=== PATIENT | male | born 1990 | race Caucasian/White ===

== ENCOUNTER 2017-05-29 22:37 | Emergency (ER) | payer MEDICAID ==
[~2017-05-29] VITALS: Ht 182.9 cm; Wt 77.1 kg
[2017-05-29 22:57] VITALS: BP 149/84
--- NOTE | 2017-05-29 23:05 | NUR ---
TO LOBBY AMBULATORY, IN STABLE CONDITION, EKG DONE, A/W FOR BED, ERMD NOTED
--- NOTE | 2017-05-30 02:26 | NUR ---
PT AMBUALTED TO ER OF 4
--- NOTE | 2017-05-30 02:30 | NUR ---
PATIENT IS A 27 Y/O MALE WHO PRESENTS TO THE ED C/O CHEST PAIN. PT STATES, "I HAVE BEEN HAVING THIS CHEST PAIN FOR ABOUT 2 WEEKS." PT REPORTS 8/10 ACHING CHEST PAIN THAT DOES NOT RADIATE. PT DENIES SOB, N/V/D. PT AAOX4, RR EVEN/UNLABORED. PT REPOSITIONED FOR COMFORT, BED IN LOWEST POSITION. ER MD DR. MENESES NOTIFIED. WILL CONTINUE TO MONITOR.
--- NOTE | 2017-05-30 03:30 | NUR ---
PATIENT RESTING AT THIS TIME.
[2017-05-30 04:26] VITALS: BP 140/80
--- NOTE | 2017-05-30 04:26 | NUR ---
Patient discharged with v/s stable. Written and verbal after care instructions given and explained. Patient alert, oriented and verbalized understanding of instructions. Ambulatory with steady gait. All questions addressed prior to discharge. ID band removed. Patient advised to follow up with PMD. Rx of IBUPROFEN 800MG given. Patient educated on indication of medication including possible reaction and side effects. Opportunity to ask questions provided and answered.
== END 2017-05-30 04:26 | disposition home or self-care (01) ==
LOC: MED 22:37
DX: M94.0 Chondrocostal junction syndrome [Tietze] (principal)
CPT/HCPCS: 71010; 93005; 99284

== ENCOUNTER 2018-02-12 09:54 | Emergency (ER) | payer OTHER ==
[~2018-02-12] VITALS: Ht 180.3 cm; Wt 78.0 kg
[2018-02-12 10:09] VITALS: BP 127/71
--- NOTE | 2018-02-12 10:25 | NUR ---
PATIENT PRESENTS TO ED WITH COMPLAINTS OF EAR ACHE, HEADACHE, AND NAUSEA X 2 WEEKS. PATIENT ALSO REPORTS HE FELT HIS FACE GO NUMB YESTERDAY. PATIENT DENIES DIARRHEA, VOMITING. SKIN IS PINK/WARM/DRY; AAOX4 WITH EVEN AND STEADY GAIT; LUNGS CLEAR BL; HR EVEN AND REGULAR; PT DENIES ANY FEVER, CP, SOB, OR COUGH AT THIS TIME; PATIENT STATES PAIN OF 7/10 AT THIS TIME; VSS; PATIENT POSITIONED FOR COMFORT; HOB ELEVATED; BEDRAILS UP X1; BED DOWN. ER MD MADE AWARE OF PT STATUS.
[2018-02-12 12:04] VITALS: BP 127/71
--- NOTE | 2018-02-12 12:08 | NUR ---
Patient discharged with v/s stable. Written and verbal after care instructions given and explained. Patient alert, oriented and verbalized understanding of instructions. Ambulatory with steady gait. All questions addressed prior to discharge. ID band removed. Patient advised to follow up with PMD. Rx of MECLIZINE AND CLARITIN D given. Patient educated on indication of medication including possible reaction and side effects. Opportunity to ask questions provided and answered.
== END 2018-02-12 12:08 | disposition home or self-care (01) ==
LOC: MED 09:54
DX: J32.0 Chronic maxillary sinusitis (principal); R42 Dizziness and giddiness
CPT/HCPCS: 82948; 99282

== ENCOUNTER 2018-05-07 13:39 | Emergency (ER) | payer OTHER ==
[~2018-05-07] VITALS: Ht 172.7 cm; Wt 80.9 kg
[2018-05-07 13:48] VITALS: BP 130/67
--- NOTE | 2018-05-07 14:00 | NUR ---
PT AMBULATES TO BED 1
--- NOTE | 2018-05-07 14:02 | NUR ---
28 YO M BIB FAMILY AFTER FALLING THROUGH THE CEILING WHILE WORKING IN THE [employer]. PT REPORTS PAIN RIGHT ARM AND LEFT LEG, AND LOWER BACK. PT PRESENTS W/ LACERATION TO THE LEFT KNEE. BLEEDING CONTROLLED. CMS INTACT. AMBULATORY W/ STEADY GAIT. DENIES HITTING HEAD/LOC, DENIES N/V. 8/10 SHARP PAIN IN L KNEE AND R ARM AND LOWER BACK. L KNEE LACERATION NOTED TO L KNEE, BLEEDING CONTROLLED. FAMILY MEMBER AT BEDSIDE. ER MD MADE AWARE. SAFETY PRECAUTIONS IMPLEMENTED. WILL CONTINUE TO MONITOR.
--- NOTE | 2018-05-07 15:02 | NUR ---
Patient being evaluated by physician at bedside.
--- NOTE | 2018-05-07 15:14 | NUR ---
Note keagan in EDM - 05/07/18 at 1515 by [email or web address] Patient discharged with v/s stable. Written and verbal after care instructions given and explained to parent/guardian. Parent/Guardian verbalized understanding of instructions. Ambulatory with by parent. All questions addressed prior to discharge. ID band removed. Parent/Guardian advised to follow up with PMD. Rx of PROMETHAZINE HYDROCHLORIDE given. Parent/Guardian educated on indication of medication including possible reaction and side effects. Opportunity to ask questions provided and answered.
[2018-05-07] MEDS ORDERED: traMADol 50 MG TAB PO ONE (15:30)
[2018-05-07] MEDS ORDERED: IBUPROFEN 800 MG TAB PO ONE (15:30)
--- NOTE | 2018-05-07 15:35 | NUR ---
PT. TAKEN TO CT SCAN AT THIS TIME
--- NOTE | 2018-05-07 15:54 | NUR ---
PT RETURNED FROM CT
--- NOTE | 2018-05-07 16:30 | NUR ---
PT. RESTING COMFORTABLY IN BED, RR EVEN AND UNLABORED. WILL CONTINUE TO MONITOR. AT BEDSIDE AT THIS TIME.
--- NOTE | 2018-05-07 17:39 | NUR ---
PT. RESTING COMFORTABLY IN BED, RR EVEN AND UNLABORED. WILL CONTINUE TO MONITOR.
[2018-05-07 18:15] VITALS: BP 134/68
--- NOTE | 2018-05-07 18:15 | NUR ---
Patient discharged with v/s stable. Written and verbal after care instructions given and explained. Patient alert, oriented and verbalized understanding of instructions. Ambulatory with steady gait. All questions addressed prior to discharge. ID band removed. Patient advised to follow up with PMD. Rx of MOTRIN 800MG, TRAMADOL 50MG given. Patient educated on indication of medication including possible reaction and side effects. Opportunity to ask questions provided and answered.
== END 2018-05-07 18:15 | disposition home or self-care (01) ==
LOC: MED 13:39
DX: S80.02XA Contusion of left knee, initial encounter (principal); S30.0XXA Contusion of lower back and pelvis, initial encounter; S40.811A Abrasion of right upper arm, initial encounter; S80.212A Abrasion, left knee, initial encounter; W17.89XA Other fall from one level to another, initial encounter; Y93.89 Activity, other specified; Y92.89 Other specified places as the place of occurrence of the external cause; Y99.8 Other external cause status
CPT/HCPCS: 71250; 72125; 72131; 90471; 90715; 99284

== ENCOUNTER 2019-08-20 21:14 | Emergency (ER) | payer OTHER ==
[~2019-08-20] VITALS: Ht 180.3 cm; Wt 79.4 kg
[2019-08-20 21:26] VITALS: BP 133/92
--- NOTE | 2019-08-20 21:30 | NUR ---
EKG PERFORMED AT BEDSIDE
--- NOTE | 2019-08-20 21:34 | NUR ---
29 Y/O MALE PRESENTS WITH CHEST PAIN ASSOCIATED WITH BREATHING BEGINNING THIS MORNING. PAIN IS LEFT SIDED CHEST PAIN, SHARP, 7/1 RADIATING TO LEFT ARM. DENIES ANY PROVOKING EVENTS. PT STATES PAIN OCCURS WHEN TAKING BREATHS. DENIES ANY SOB. RESP EVEN AND UNLABORED. LUNG SOUNDS CLEAR IN BILAT LOBES. CAP REFILL <3. AAOX4. CAP REFILL <3. SKIN COOL/DRY. NSR, VSS NO PMH NKA
[2019-08-20] MEDS ORDERED: KETOROLAC 30 MG/ML VIAL IM ONE (22:05)
--- NOTE | 2019-08-20 22:10 | NUR ---
PT IS LAYING IN BED. NSR. VSS. RESP EVEN AND UNLABORED. EYES OPENING SPONTANEOUSLY
[2019-08-20 22:46] VITALS: BP 133/92
== END 2019-08-20 22:46 | disposition home or self-care (01) ==
LOC: MED 21:14
DX: R07.9 Chest pain, unspecified (principal); R00.2 Palpitations
CPT/HCPCS: 71045; 93005; 96372; 99284; J1885; Q0092

== ENCOUNTER 2019-09-14 12:32 | Emergency (ER) | payer OTHER ==
[~2019-09-14] VITALS: Ht 180.3 cm; Wt 79.4 kg
--- NOTE | 2019-09-14 12:36 | NUR ---
Ambulated to bed 11
[2019-09-14 12:39] VITALS: BP 134/78
--- NOTE | 2019-09-14 12:48 | NUR ---
XRAY IS AT BEDSIDE.
--- NOTE | 2019-09-14 12:48 | NUR ---
C/O RIGHT DISTAL TIB/FIB LUMP >1 YR; HAS INCREASED IN SIZE AND PAIN UPON WALKING >2 MONTHS---DENIES ANY RECENT INJURY OR DISCOLORATION
[2019-09-14 13:15] VITALS: BP 134/78
--- NOTE | 2019-09-14 13:15 | NUR ---
Patient discharged with v/s stable. Written and verbal after care instructions given and explained. Patient verbalized understanding. Ambulatory with steady gait. All questions addressed prior to discharge. Advised to follow up with PMD.
== END 2019-09-14 13:15 | disposition home or self-care (01) ==
LOC: MED 12:32
DX: M79.661 Pain in right lower leg (principal)
CPT/HCPCS: 73590; 99283

== ENCOUNTER 2021-01-03 22:29 | Emergency (ER) | payer OTHER ==
[~2021-01-03] VITALS: Ht 182.9 cm; Wt 81.6 kg
[2021-01-03 23:05] VITALS: BP 137/69
--- NOTE | 2021-01-03 23:08 | NUR ---
TO LOBBY A/W BED AMBULATORY
--- NOTE | 2021-01-04 01:40 | NUR ---
PT UP FOR DISCHARGE. PT SEEN LEAVING FACILITY. NO DISCHARGE INSTRUCTIONS GIVEN TO PATIENT.
== END 2021-01-04 01:40 | disposition home or self-care (01) ==
LOC: MED 22:29
DX: M79.645 Pain in left finger(s) (principal); W19.XXXA Unspecified fall, initial encounter; Y93.66 Activity, soccer; Y92.89 Other specified places as the place of occurrence of the external cause; Y99.8 Other external cause status
CPT/HCPCS: 73110; 73130; 99284

== ENCOUNTER 2021-12-13 19:52 | Emergency (ER) | payer OTHER ==
[~2021-12-13] VITALS: Ht 182.9 cm; Wt 79.4 kg
[2021-12-13 20:22] VITALS: BP 127/78
--- NOTE | 2021-12-13 20:34 | NUR ---
TO LOBBY FOLLOWING TRIAGE
[2021-12-13 22:03] LABS: BASOPHILS # (AUTO) 0.1 K/uL (0.00-0.22); EOSINOPHILS # (AUTO) 0.2 K/uL (0-0.4); EOSINOPHILS % (AUTO) 1.9 % (0.0-4.0); HEMATOCRIT 42.4 % (36-52); HEMOGLOBIN 14.1 g/dL (12.0-18.0); LYMPHOCYTES # (AUTO) 2.2 K/uL (2.0-11.5); LYMPHOCYTES % (AUTO) 23.9 % (20.5-51.1); MEAN CORPUSCULAR HEMOGLOBIN 28 pg (27-31); MEAN CORPUSCULAR HGB CONC 33 g/dL (33-37); MEAN CORPUSCULAR VOLUME 84.6 fL (80-94); MONOCYTES # (AUTO) 0.6 K/uL (0.8-1.0); MONOCYTES % (AUTO) 6.9 % (1.7-9.3); NEUTROPHILS # (AUTO) 6.2 K/uL (1.8-7.7); NEUTROPHILS % (AUTO) 66.3 % (42.2-75.2); PLATELET COUNT (AUTO) 209 K/uL (140-450); RED BLOOD CELL COUNT(AUTO) 5.01 MIL/uL (4.20-6.10); RED CELL DISTRIBUTION WIDTH 14.2 % (11.6-13.7); WHITE BLOOD COUNT (AUTO) 9.3 K/uL (4.8-10.8)
[2021-12-13 22:09] LABS: ANION GAP 10.4 (8-16); CARBON DIOXIDE 32.7 mmol/L (21-32); POTASSIUM 4.1 mmol/L (3.5-5.1)
[2021-12-14 00:10] VITALS: BP 127/78
== END 2021-12-14 00:10 | disposition home or self-care (01) ==
LOC: MED 19:52
DX: R10.12 Left upper quadrant pain (principal)
CPT/HCPCS: 36415; 80048; 81002; 84484; 85025; 93005; 99284